=== PATIENT | male | born 1990 | race Caucasian/White ===

== ENCOUNTER 2019-05-05 05:45 | Emergency (ER) | payer MEDICAID ==
[~2019-05-05] VITALS: Ht 193 cm; Wt 80.0 kg
[~2019-05-05 05:45] MED LIST: ALBU8.5H8 INH; IBUP-1985 PO; LACT1CAP26 PO; NICO-631 TD; NO HOME MEDS
[2019-05-05 05:50] VITALS: BP 138/76
[2019-05-05] MEDS ORDERED: TETanus/Pertussis (Acell)/Diphther VAC/PF (Tdap-Adult) 0.5ml syringe IM ONE (06:30)
[2019-05-05] MEDS ORDERED: CIPR-230 PO (06:43)
[2019-05-05] MEDS ORDERED: ACET-3067 PO (06:43)
[2019-05-05] MEDS ORDERED: ibuprofen tablet 400 MG TABLET PO ONE (06:45)
== END 2019-05-05 07:11 | disposition home or self-care (01) ==
LOC: ER 05:46
DX: S91.332A Puncture wound without foreign body, left foot, initial encounter (principal); F12.90 Cannabis use, unspecified, uncomplicated; Z59.0 Homelessness; F10.99 Alcohol use, unspecified with unspecified alcohol-induced disorder; Z79.899 Other long term (current) drug therapy; W45.0XXA Nail entering through skin, initial encounter; Y93.89 Activity, other specified; Y92.89 Other specified places as the place of occurrence of the external cause; Y99.8 Other external cause status; Y90.9 Presence of alcohol in blood, level not specified
CPT/HCPCS: 73630; 90471; 99284

== ENCOUNTER 2021-09-08 08:32 | Emergency (ER) | payer MEDICAID, OTHER ==
[~2021-09-08] VITALS: Ht 190.5 cm; Wt 90.9 kg
[~2021-09-08 08:32] MED LIST changes: +ALBU8.5H17 INH; -ALBU8.5H8 INH
[2021-09-08 08:47] VITALS: BP 142/79
[2021-09-08] MEDS ORDERED: CIPR-202 PO (09:00)
[2021-09-08] MEDS ORDERED: CEPH500C2 PO (09:00)
[2021-09-08] MEDS: TETanus/Pertussis (Acell)/Diphther VAC/PF (Tdap-Adult) 0.5ml syringe IMVAC ONE (09:41)
--- NOTE | 2021-09-08 09:41 | NUR ---
pt left before tdap could be administered
== END 2021-09-08 09:42 | disposition home or self-care (01) ==
LOC: ER 08:34
DX: S91.332A Puncture wound without foreign body, left foot, initial encounter (principal); F12.90 Cannabis use, unspecified, uncomplicated; Z72.89 Other problems related to lifestyle; Z59.00 Homelessness unspecified; Z79.2 Long term (current) use of antibiotics; Z79.899 Other long term (current) drug therapy; W22.8XXA Striking against or struck by other objects, initial encounter; Y93.89 Activity, other specified; Y92.89 Other specified places as the place of occurrence of the external cause; Y99.8 Other external cause status
CPT/HCPCS: 99283